=== PATIENT | male | born 1940 | race Caucasian/White ===

== ENCOUNTER → 2017-12-15 13:55 | Outpatient (CLI) | payer MEDICARE, SELFPAY ==
[2017-12-15 15:51] LABS: Prostate Specific Ag Screen 1.5 ng/mL (0.0-4.0)
== END ==
PROVIDERS: Visit Provider Urology
DX: Z12.5 Encounter for screening for malignant neoplasm of prostate (principal); N40.0 Benign prostatic hyperplasia without lower urinary tract symptoms
CPT/HCPCS: 36415; G0103

== ENCOUNTER 2021-01-27 08:23 | Inpatient (IN) | payer MEDICARE, SELFPAY ==
[2021-01-27] VITALS (26 sets, daily range): BP systolic 120–199; BP diastolic 37–109; PULSE 44–98; RESP 14–20; TEMP 36.4–37.2; O2SAT 92–100; BMI 30.4; BMI 30.6
--- NOTE | 2021-01-27 | IR_ITS ---
APPROVED REPORT Patient Location: [facility] Publications: DENNIS Russell RT (R) PROCEDURES 1. Left heart catheterization 2. Selective coronary arteriography 3. Left ventriculography 4. PTCA/stent of the first obtuse marginal branch of the circumflex 5. PTCA/stent of the circumflex INDICATION 1. Non-Q wave myocardial infarction, 2. Unstable angina SCAI INDICATION Patient is an 80-year-old white male who presented with progressive chest pain. Despite medical therapy still with 9 out of 10 chest pain. Leak of cardiac enzymes. No dynamic EKG changes consistent with acute myocardial infarction but given continued pain and cardiac leak of enzymes referred directly for left heart catheterization Informed consent was obtained prior to the procedure. COMPLICATIONS None Estimated Blood Loss: less than 10ml TECHNIQUE One percent lidocaine was used to anesthetize the right groin. The right femoral artery was accessed via the Seldinger technique. A 4-Tristanian sheath was placed in the right femoral artery. The JL-4 and JR-4 catheter was also used to perform left heart catheterization left ventriculogram and selective coronary angiogram. At the end of the procedure the patient was transferred to the post-op holding area in stable condition for arterial sheath removal. ANGIOGRAPHIC RESULTS The left main artery With 30% ostial stenosis. Good reflux of contrast and no damping of pressure The left anterior descending artery Smooth 30% mid and smooth 30% distal stenosis. Diagonal branch with 30% diffuse stenosis The circumflex artery 95% proximal occlusion. Large and codominant vessel. First obtuse marginal branch with 100% proximal occlusion with staining at that level The right coronary artery Moderate in size and codominant. Diffuse 20 to 30% stenosis throughout the mid vessel with normal flow into the posterior descending artery and posterior lateral branch The MITCHELL ventriculogram reveals Normal left ventricular systolic function at 55 to 60%. 1-2+ mitral insufficiency. No gradient on pullback of the catheter The left ventricular end-diastolic pressure 12 After diagnostic cath was performed the 4 Tristanian sheath was changed for a 6 Tristanian sheath. ACT was checked and additional thousand of heparin was given. Went in with a guide catheter to the left main coronary artery. Crossed into the circumflex with a Choice PT wire. Once I crossed, that artery opened. Stented with a 2.75 resolute Chong. Resulted in 0% residual stenosis. I then stented the proximal left circumflex with a 3.5 x 12 mm [place] drug-eluting stent. Resulted in 0% residual stenosis and brisk JACK-3 flow down both vessels when the procedure was complete Right common retrograde femoral arteriogram performed. Sheath placed in the right common femoral artery. Secondary to this an Angio-Seal device was deployed without difficulty IMPRESSION 1. Critical 100% occlusion of the large first obtuse marginal branch of the circumflex in its proximal portion 2. Critical stenosis noted in the ostial codominant left circumflex 3. Mild to moderate diffuse disease in the other coronary vessels 4. Preserved normal left ventricular systolic function 5. Mild to moderate mitral insufficiency 6. Normal left ventricular end-diastolic pressure 7. Successful angioplasty and stenting of the proximal first obtuse marginal branch of the circumflex with a resolute [place] drug-eluting stent resulting in 0% residual stenosis 8. Successful angioplasty and stenting of the proximal left circumflex with a resolute Chong drug-eluting stent resulting in 0% residual stenosis 9. Successful placement of an Angio-Seal device in the right common femoral artery
--- NOTE | 2021-01-27 08:23 | ECG_ITS ---
APPROVED REPORT Exam: Resting ECG HR:95 bpm ECG Measurements Heart Rate 95 AXES LA 170 P 27 QRSd 96 QRS -16 QT 354 T 21 QTc 444 Conclusion Sinus rhythm with frequent premature ventricular complexes Minimal voltage criteria for LVH, may be normal variant Nonspecific ST abnormality Abnormal ECG Electronically signed by : Carlos Roque, 01/30/2021 21:45:29
--- NOTE | 2021-01-27 08:26 | XR_ITS ---
PROCEDURE INFORMATION: Exam: XR Chest Exam date and time: 01/27/2021 8:26 AM Age: 80 years old Clinical indication: Pain; Left-sided; Additional info: Cp TECHNIQUE: Imaging protocol: XR of the chest. Views: 1 view. COMPARISON: CT ANGIO CHEST 01/27/2021 9:08 AM FINDINGS: Lungs: Unremarkable. No consolidation. Pleural spaces: Unremarkable. No pleural effusion. No pneumothorax. Heart/Mediastinum: Unremarkable. No cardiomegaly. Bones/joints: Unremarkable. IMPRESSION: No acute findings.
[2021-01-27 08:32] LABS: Basophils # 0.1 K/mm3 (0-0.2); Basophils % 0.6 % (0.1-2.0); Eosinophils # 0.2 K/mm3 (0.0-0.4); Eosinophils % 2.2 % (0.1-12.0); Hematocrit 48.6 % (42.0-52.0); Hemoglobin 16.3 g/dL (14.1-18.0); Lymphocytes # 2.7 K/mm3 (0.7-4.5); Mean Corpuscular HGB Conc 33.6 g/dL (31.8-35.4); Mean Corpuscular Hemoglobin 31.3 pg (27.0-31.2); Mean Corpuscular Volume 93.1 fl (80-94); Mean Platelet Volume 8.5 fl (7.4-10.4); Monocytes # 0.4 K/mm3 (0.1-1.0); Monocytes % 4.6 % (1.7-9.3); Neutrophils # 4.7 K/mm3 (1.8-7.8); Neutrophils % 58.6 % (37.0-80.0); Platelet Count 214 K/mm3 (142-424); Red Blood Count 5.22 M/mm3 (4.60-6.20); Red Cell Distribution Width 13.1 % (11.5-17.5); White Blood Count 8.1 K/mm3 (4.8-10.8)
[2021-01-27 08:37] LABS: Chloride 108 mmol/L (98-107); Potassium 4.1 mmoL/L (3.5-5.1); Sodium 142 mmol/L (136-145)
--- NOTE | 2021-01-27 08:38 | CT_ITS ---
PROCEDURE INFORMATION: Exam: CTA Chest With Contrast Exam date and time: 01/27/2021 8:38 AM Age: 80 years old Clinical indication: Pain; Left-sided; Patient HX: R/O aortic dissection TECHNIQUE: Imaging protocol: Computed tomographic angiography of the chest with contrast. 3D rendering (Not supervised by radiologist): MIP and/or 3D reconstructed images were created by the technologist. Radiation optimization: All CT scans at this facility use at least one of these dose optimization techniques: automated exposure control; mA and/or kV adjustment per patient size (includes targeted exams where dose is matched to clinical indication); or iterative reconstruction. Contrast material: ISOVUE; Contrast volume: 100 ml; Contrast route: INTRAVENOUS (IV); COMPARISON: ABDPELW/O CT ABD PELVIS W/O CONTRAST 11/13/2016 8:39 PM FINDINGS: Pulmonary arteries: Normal. No pulmonary emboli. Aorta: Negative for aortic dissection or aneurysm. Atherosclerotic plaque throughout the descending thoracic aorta. Lungs: Unremarkable. No consolidation. No masses. Pleural spaces: Unremarkable. No pneumothorax. No pleural effusion. Heart: Unremarkable. No cardiomegaly. No pericardial effusion. Lymph nodes: Unremarkable. No enlarged lymph nodes. Bones/joints: Unremarkable. No acute fracture. Soft tissues: Unremarkable. Other findings: Previous granulomatous exposure. IMPRESSION: Negative for aortic dissection or aneurysm.
--- NOTE | 2021-01-27 08:38 | CT_ITS ---
PROCEDURE INFORMATION: Exam: CTA Abdomen and Pelvis With Contrast Exam date and time: 01/27/2021 8:38 AM Age: 80 years old Clinical indication: Abdominal pain; Acute; Patient HX: Lt side c. P. X 2 days; Additional info: Aortic dissection TECHNIQUE: Imaging protocol: Computed tomographic angiography of the abdomen and pelvis with contrast material. 3D rendering (Not supervised by radiologist): MIP and/or 3D reconstructed images were created by the technologist. Radiation optimization: All CT scans at this facility use at least one of these dose optimization techniques: automated exposure control; mA and/or kV adjustment per patient size (includes targeted exams where dose is matched to clinical indication); or iterative reconstruction. Contrast material: ISOVUE; Contrast volume: 100 ml; Contrast route: INTRAVENOUS (IV); COMPARISON: ABDPELW/O CT ABD PELVIS W/O CONTRAST 11/13/2016 8:39 PM FINDINGS: Aorta: Negative for aortic dissection or aneurysm. Celiac trunk and mesenteric arteries: No occlusion or significant stenosis. Renal arteries: Renal arteries patent, numbering 2 on the left, 1 on the right. Right iliac arteries: No occlusion or significant stenosis. Left iliac arteries: No occlusion or significant stenosis. Liver: No mass. Gallbladder and bile ducts: Cholelithiasis. Pancreas: Unremarkable. No mass. No ductal dilation. Spleen: Unremarkable. No splenomegaly. Adrenal glands: Unremarkable. No mass. Kidneys and ureters: Unremarkable. No solid mass. No hydronephrosis. Stomach and bowel: Unremarkable. No obstruction. No mucosal thickening. Appendix: No evidence of appendicitis. Intraperitoneal space: Unremarkable. No free air. No significant fluid collection. Lymph nodes: Unremarkable. No enlarged lymph nodes. Urinary bladder: Unremarkable. No mass. Reproductive: Unremarkable as visualized. Bones/joints: Degenerative changes lumbar spine with multilevel disc narrowing. Soft tissues: Unremarkable. IMPRESSION: 1. Negative for aortic dissection or aneurysm. 2. Cholelithiasis.
[2021-01-27 08:40] LABS: Blood Urea Nitrogen 23 mg/dl (9-20); Creatinine Clearance Estimated 73 mL/min (50-200); Estimated Glomerular Filt Rate 72 ml/min (>60); GFR (African American) 87 ML/MIN (>60)
[2021-01-27 08:41] LABS: Anion Gap 14.1 mEq/L (5-15); Calcium 8.7 mg/dl (8.4-10.2); Carbon Dioxide 24 mmol/L (22.0-30.0); Glucose 150 mg/dl (74-100)
--- NOTE | 2021-01-27 08:51 | PC.NURSE ---
Radiology called to expedite CT scan. Pt currently on table, they will come get him next.
[2021-01-27 08:56] LABS: Troponin I 0.85 ng/ml (0.00-0.034)
--- NOTE | 2021-01-27 08:57 | PC.NURSE ---
Critical lab values called to Micah Cerda RN
--- NOTE | 2021-01-27 08:58 | PC.NURSE ---
aware of troponin
--- NOTE | 2021-01-27 09:01 | PC.NURSE ---
pt to rad
--- NOTE | 2021-01-27 09:07 | HMH.EDGENADL ---
ED Disposition Clinical Impression: NSTEMI (non-ST elevated myocardial infarction) Disposition: Admitted As Inpatient Condition on Discharge: Fair Referrals: Provider,Referral, [Referring] - - Critical Care Critical Care Time: Yes Attestation: On 01/27/21, the high probability of a clinically significant, sudden or life threatening deterioration of the following system(s) required my full and direct attention, intervention and personal management. The time I documented below is in addition to time spent performing reported procedures but includes the following listed in this critical care notation. I spent approximately 30 minutes caring for this patient with an NSTEMI. No procedures were performed, however patient had acute, ongoing chest pain throughout his duration the ED which required my immediate attention. I reassessed the patient frequently, spoke to family, reviewed laboratory results including critical troponin of 0.8, repeat EKG, spoke with both day porter, and initiated treatment prior to the patient being taken to the [facility]. Total Critical Care Time: 30 Vital system(s) involved:: Circulatory Failure My critical care processes included: Assessment & monitoring of V/S, Initial and Re-exams, Data Review/Interpretation, Coordinating Care, Medication Orders and management, Documentation Medical Decision Making - Medical Records Medical records reviewed: Yes: I reviewed the patient's medical records. - Clarence Inquiry Pt receiving controlled substance: Yes Clarence was queried for this patient: Yes Risks and benefits of using a controlled substance: were discussed with pt by me Vital Signs: 01/27/21 08:23 01/27/21 08:32 01/27/21 08:55 Temperature 97.5 F L Temperature Source Oral Pulse Rate 88 Pulse Rate [Right] 98 H Respiratory Rate 20 14 Blood Pressure 173/95 H 143/78 H Blood Pressure [Right Arm] 199/109 H Blood Pressure Mean [Right Arm] 139 02 Sat by Pulse Oximetry 97 92 L Oxygen Delivery Method Room Air Room Air 01/27/21 08:58 01/27/21 10:25 01/27/21 11:00 Temperature 98.2 F Temperature Source Oral Pulse Rate 65 77 Pulse Rate [Right] Respiratory Rate 14 16 Blood Pressure 137/79 132/67 136/58 L Blood Pressure [Right Arm] Blood Pressure Mean [Right Arm] 02 Sat by Pulse Oximetry 95 Oxygen Delivery Method Room Air Room Air - Lab Data Lab Results 01/27/21 08:07: WBC 8.1, RBC 5.22, Hgb 16.3, Hct 48.6, MCV 93.1, MCH 31.3 H, MCHC 33.6, RDW 13.1, Plt Count 214, MPV 8.5, Neut % (Auto) 58.6, Lymph % (Auto) 34.0, [place] % (Auto) 4.6, Eos % (Auto) 2.2, Baso % (Auto) 0.6, Neut # (Auto) 4.7, Lymph # (Auto) 2.7, [place] # (Auto) 0.4, Eos # (Auto) 0.2, Baso # (Auto) 0.1 01/27/21 08:07: Sodium 142, Potassium 4.1, Chloride 108 H, Carbon Dioxide 24, Anion Gap 14.1, BUN 23 H, Creatinine 1.00, Estimated Creat Clear 73, Estimated GFR 72, Est GFR ( Amer) 87, Glucose 150 H, Calcium 8.7, Troponin I 0.85 H Result diagrams: 01/27/21 08:07 01/27/21 08:07 Orders (Tests/Meds): ED MEDICATIONS Discontinued Medications Generic Name Dose Route Start Last Admin Trade Name Freq PRN Reason Stop Dose Admin Aspirin 324 mg 01/27/21 08:30 01/27/21 08:33 Aspirin 81mg Chewable Tablet PO 01/27/21 08:31 324 mg ONCE ONE Administration Diphenhydramine HCl 50 mg 01/27/21 10:45 01/27/21 11:15 Diphenhydramine 50mg/Ml Vial IV 01/27/21 10:46 50 mg ONCE ONE Administration Fentanyl Citrate 25 mcg 01/27/21 10:45 Fentanyl 100mcg/2ml Vial IV 01/28/21 10:45 Q3MINP PRN Moderate to Severe Pain Fentanyl Citrate 50 mcg 01/27/21 10:45 Fentanyl 100mcg/2ml Vial IV 01/28/21 10:45 Q3MINP PRN Moderate to Severe Pain Fentanyl Citrate 25 mcg 01/27/21 10:45 Fentanyl 250mcg/5ml Vial IV 01/28/21 10:45 Q3MINP PRN Moderate to Severe Pain Fentanyl Citrate 50 mcg 01/27/21 10:45 Fentanyl 250mcg/5ml Vial IV 01/28/21 10:45 Q3MINP
--- NOTE | 2021-01-27 09:24 | PC.NURSE ---
Pt returned from rad
--- NOTE | 2021-01-27 09:37 | ECG_ITS ---
APPROVED REPORT Exam: Resting ECG HR:73 bpm ECG Measurements Heart Rate 73 AXES OR 176 P 23 QRSd 96 QRS -18 QT 400 T 14 QTc 440 Conclusion Sinus rhythm with occasional premature ventricular complexes Otherwise normal ECG Electronically signed by : Carlos Roque, 01/30/2021 21:45:06
--- NOTE | 2021-01-27 10:03 | PC.NURSE ---
ROBYN YODER speaking with Dr jones
--- NOTE | 2021-01-27 10:06 | PC.NURSE ---
Plan to go to [facility] around 11:30, orders for brillinta & heparin.
--- NOTE | 2021-01-27 10:06 | PC.NURSE ---
House aware to call cath team for NSTEMI
--- NOTE | 2021-01-27 10:07 | PC.NURSE ---
general labor forklift operator team paged for NSTEMI/unstable angina for cath at 1100
--- NOTE | 2021-01-27 10:08 | PC.NURSE ---
Patti Heath called at this time.
--- NOTE | 2021-01-27 10:09 | PC.NURSE ---
Crystal Cummings called back
--- NOTE | 2021-01-27 10:11 | PC.NURSE ---
heparin dose verified with Dr. Xie 8000 units.
--- NOTE | 2021-01-27 10:12 | PC.NURSE ---
Benjamin gonzalez called back
--- NOTE | 2021-01-27 10:22 | PC.NURSE ---
Pt prepped for mobile lab technician, in hospital gown only. Bilateral groin shaved. Pt belongings in labeled bag at bedside.
--- NOTE | 2021-01-27 10:42 | PC.NURSE ---
Dr Jude davenport who is informatics physician liaison for [facility]
--- NOTE | 2021-01-27 10:59 | PC.NURSE ---
Pt to label rewinder at this time via transport conductor. Pt's belongings given to brother Javier at bedside.
[2021-01-27 12:00] LABS: CATHL Activated Clotting Time 239 SEC (74-125)
--- NOTE | 2021-01-27 12:15 | SUR.PHASEII ---
PT NEEDS ECHO IN THE MORNING PER DR. MADISON.
--- NOTE | 2021-01-27 13:16 | HMH.PHAVTE ---
[facility] Pharmacy VTE Monitoring - Patient Demographics Admission date: 01/27/21 Report Date: 01/27/21 Time: 13:16 Allergies/Adverse Reactions: Patient Allergies No Known Allergies Allergy (Verified 01/27/21 08:48) Height: 1.73 m Weight: 91.354 kg Patient Problems: Current Active Problems NSTEMI (non-ST elevated myocardial infarction) (Acute) - VTE Risk Labs: VTE Related Lab Results Hgb 16.3 g/dL (14.1-18.0) 01/27/21 08:07 Hct 48.6 % (42.0-52.0) 01/27/21 08:07 Plt Count 214 K/mm3 (142-424) 01/27/21 08:07 BUN 23 mg/dl (9-20) H 01/27/21 08:07 Creatinine 1.00 mg/dl (0.66-1.25) 01/27/21 08:07 Estimated Creat Clear 73 mL/min (50-200) 01/27/21 08:07 Clinical Trial Participant: No - Prophylaxis VTE Prophylaxis Ordered?: Yes Types of VTE Prophylaxis: TEDS Knee High
--- NOTE | 2021-01-27 14:58 | PC.NURSE ---
Addendum entered by Stefani Hall RN 01/27/21 15:08: per MD Roque, cancel all troponin orders for this pt Original Note: Spoke to [place] in the lab regarding pt's critical troponin. Verified name, and room number. Notified MD Roque, fashion director for MD Warner.
--- NOTE | 2021-01-27 17:07 | HMH.HP ---
*Admission Date: 01/27/21 *Chief complaint: Chest pain/angina *History of present illness: Patient is an 80-year-old male maddox presenting with 2 days of severe retrosternal chest pain. 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 States that he patient felt the pain in his back that then radiated anteriorly into his chest. Patient told nurse that the patient woke him up from sleep he states that nothing makes it better, nothing makes it worse. Patient states that he has had some nausea without vomiting. He denies any abdominal pain, fever, chills. Patient denies any known history of hypertension, cardiac history, prior PR. He states that he goes to the doctor annually and does not have any known medical problems. Patient further denies any changes in sensation or feeling to bilateral lower extremities or upper extremities. Above note Per emergency department physician. Patient presented to emergency department with 2 days of chest pressure. Unremitting to medicines in the ER. Taken to [facility] given elevated troponins and 100% circumflex lesion was noted, stented and patient did well. When I made rounds this afternoon patient was asymptomatic and felt 100% better. [facility] History I have reviewed the patient's past medical history: Yes Medical History: Reports:: Hyperlipidemia, Hypertension, Ulcer *Have you ever received a pneumonia vaccine?: Yes *Have you received a flu vaccine this season?: Yes Other Medical History: Reports: Anemia Laterality Cases: Bilateral: Other Other Surgeries: Yes: Colonoscopy Amputation: No Fractures: No - *Social History Smoking Status: Never smoker Alcohol Intake: current Alcohol Intake Frequency:: holidays/special occasions only Substance Use Type: denies use *Occupational Status:: retired *Travel in the last 8 weeks: None Family Hx:: Cancer, Diabetes, Heart Attack, Hypertension Review of Systems - Review of Systems Review of systems:: pertinent systems reviewed and negative unless documented below Meds Home Medications Medication Instructions Recorded Confirmed Type tamsulosin 0.4 mg capsule 0.8 mg PO HS 12/15/17 01/27/21 History Amlodipine Besylate/Benazepril 1 cap PO BID 01/27/21 01/27/21 History [Amlodipine-Benazepril 5-20 mg] Finasteride [Proscar 5mg Tablet] 5 mg PO DAILY 01/27/21 01/27/21 History Allergies Allergy/AdvReac Type Severity Reaction Status Date / Time No Known Allergies Allergy Verified 01/27/21 08:48 Exam Vital signs and Labs for Last 24 Hours: Temp Pulse Resp BP Pulse Ox 98.9 F 72 16 128/67 98 01/27/21 11:57 01/27/21 16:00 01/27/21 12:05 01/27/21 12:05 01/27/21 15:15 Laboratory Results - last 24 hr 01/27/21 08:07: WBC 8.1, RBC 5.22, Hgb 16.3, Hct 48.6, MCV 93.1, MCH 31.3 H, MCHC 33.6, RDW 13.1, Plt Count 214, MPV 8.5, Neut % (Auto) 58.6, Lymph % (Auto) 34.0, [place] % (Auto) 4.6, Eos % (Auto) 2.2, Baso % (Auto) 0.6, Neut # (Auto) 4.7, Lymph # (Auto) 2.7, [place] # (Auto) 0.4, Eos # (Auto) 0.2, Baso # (Auto) 0.1 01/27/21 08:07: Sodium 142, Potassium 4.1, Chloride 108 H, Carbon Dioxide 24, Anion Gap 14.1, BUN 23 H, Creatinine 1.00, Estimated Creat Clear 73, Estimated GFR 72, Est GFR ( Amer) 87, Glucose 150 H, Calcium 8.7, Troponin I 0.85 H 01/27/21 11:22: Activated Clotting Time 239 H* 01/27/21 14:24: Troponin I 47.80 H I & O for Last 24 hours: Intake & Output 01/25/21 01/26/21 01/27/21 01/28/21 11:59 11:59 11:59 11:59 Intake Total 120 / 120 120 / 120 Balance 120 / 120 120 / 120 Weight 200 lb 201 lb 6.4 oz - Constitutional no acute distress - *Routine HEENT Exam Head: Present: normocephalic Eye: Present: EOMI, PERRL ENT: Present: mucous membranes moist - *Routine Neck Exam Present: supple. Absent: lymphadenopathy - *Routine Respiratory Exam Present: CTA bilaterally - *Routine Cardiovascular Exam Present: RRR - *Routine Abdominal Exam Present: soft, normoactive bowel sounds
--- NOTE | 2021-01-27 17:59 | PC.NURSE ---
Since arrival to the floor, pt has done well. VSS. Pt has remained on RA, lungs CTA. Pt has c/o chest pressure x1 and requested PRN pain medication. PRN morphine administered w/ favorable results. Pt has been NSR w/ frequent PVC's this shift. No other acute changes or complaints at this time, will continue to monitor.
[2021-01-28] VITALS: BP 162/81; PULSE 60; PULSE 70; RESP 18; TEMP 36.6; O2SAT 96
--- NOTE | 2021-01-28 03:23 | PC.NURSE ---
Pt is A/Ox4. Pt has been very pleasant all shift and has slept very well. no acute changes. Lungs are CTA. Active bowel sounds x4. Pt is on room air with stats >90's. Pt has been NS on tele all night. Pt's incision site is C/D/I in the right femoral area. Pt has denied pain all shift. VSS, call light within reach, will continue to monitor.
[2021-01-28 03:24] VITALS: BP 150/76; PULSE 71; RESP 18; TEMP 36.7; O2SAT 97
[2021-01-28 04:00] VITALS: PULSE 70
[2021-01-28 05:00] VITALS: BMI 30.2
[2021-01-28 06:24] LABS: Basophils # 0.1 K/mm3 (0-0.2); Basophils % 1.1 % (0.1-2.0); Eosinophils # 0.2 K/mm3 (0.0-0.4); Hematocrit 44.2 % (42.0-52.0); Lymphocytes # 1.5 K/mm3 (0.7-4.5); Lymphocytes % 17.5 % (10-50); Mean Corpuscular HGB Conc 33.9 g/dL (31.8-35.4); Mean Corpuscular Hemoglobin 31.4 pg (27.0-31.2); Mean Corpuscular Volume 92.8 fl (80-94); Mean Platelet Volume 8.4 fl (7.4-10.4); Monocytes # 0.6 K/mm3 (0.1-1.0); Monocytes % 6.6 % (1.7-9.3); Neutrophils # 6.3 K/mm3 (1.8-7.8); Neutrophils % 72.9 % (37.0-80.0); Platelet Count 191 K/mm3 (142-424); Red Blood Count 4.76 M/mm3 (4.60-6.20); Red Cell Distribution Width 13.4 % (11.5-17.5); White Blood Count 8.6 K/mm3 (4.8-10.8)
[2021-01-28 06:31] LABS: Prothrombin Time 11.4 seconds (10.1-12.5)
[2021-01-28 06:35] LABS: Anion Gap 10.9 mEq/L (5-15); Blood Urea Nitrogen 12 mg/dl (9-20); Calcium 8.2 mg/dl (8.4-10.2); Carbon Dioxide 23 mmol/L (22.0-30.0); Chloride 109 mmol/L (98-107); Chol/HDL Ratio 4.9 (1-3.5); Cholesterol 186 mg/dl (140-200); Creatinine Clearance Estimated 73 mL/min (50-200); Estimated Glomerular Filt Rate 93 ml/min (>60); GFR (African American) 112 ML/MIN (>60); Glucose 112 mg/dl (74-100); HDL Cholesterol 38 mg/dl (40-60); Potassium 3.9 mmoL/L (3.5-5.1); Sodium 139 mmol/L (136-145); Triglycerides 91 mg/dl (30-150); VLDL Cholesterol 18 mg/dL (0-40)
[2021-01-28 06:38] LABS: INR 0.96 (0.9-1.1)
[2021-01-28 06:48] LABS: Direct LDL Cholesterol 109.61 mg/dL (100-129)
--- NOTE | 2021-01-28 07:00 | CA_ITS ---
APPROVED REPORT EXAM: Comprehensive 2D, Doppler, and color-flow Echocardiogram Software Team Leader: Lilian Quiñonez CRT Ht: 5 ft 8 in Wt: 200lbs BSA: 2.04 BP: 136/58 mmHg Indications: nstemi, cath 01/27/21, cp 2D Dimensions LVOT 2.01 cm (M/F) 1.5-2.5 LA Volume 50.70 mL LA Volume Index 24.90 mL/m2 (M/F) 16-34 M-Mode Dimensions RVDd 2.99 cm (0.9-2.6) LA Diam 3.16 cm (1.9-4.0) LVDd 3.47 cm (3.5-5.7) Ao Diam 3.92 cm (2.0-3.7) LVDs 2.29 cm (3.5-5.7) IVSd 1.66 cm (0.6-1.1) PWd 1.00 cm (0.6-1.1) EF (Teich) 64.10% FS 34.00% EDV (Teich) 49.80 mL TAPSE 2.56 (<1.7) ESV (Teich) 17.90 mL LV Diastology E Decel Time 150.00 (160-240 msec) E/A Ratio 0.35 Aortic Valve AI PHT 412.00 ms AO Peak GR. 3.80 mmHg Mitral Valve MV E Max Josue. 36.00 (40-130 cm/s) MV A Velocity 103.00 (40-130 cm/s) E/A Ratio 0.35 MV Decel. Time 150.00 (160-240 ms) MV PHT 44.00 ms Pulmonary Valve PV Peak Velocity 150.00 (50-150 cm/s) Tricuspid Valve TR P. Velocity 218.00 cm/s RAP Estimate 10.00 mmHg RVSP 28.90 mmHg Left Ventricle Left atrium is mildly enlarged, left ventricle is normal size, visually estimated ejection fraction 50%, there is moderate hypokinesis involving the posterolateral wall, Doppler evidence of impaired LV relaxation seen, there is no tissue Doppler performed. Right Ventricle Right atrium and right ventricle are normal size and contractility. Aortic Valve Aortic valve is minimally thickened and fibrosed, there is no aortic stenosis, there is trace aortic insufficiency. Mitral Valve Mitral valve is grossly normal, there is mild mitral regurgitation. Tricuspid Valve Tricuspid valve grossly normal, there is mild tricuspid regurgitation, tricuspid regurgitation jet velocity is inadequate for calculation of the right ventricular systolic pressure. Pulmonic Valve Pulmonic valve is poorly visualized. Great Vessels Aortic root is normal size. Pericardium No significant pericardial effusion noted. Conclusion 1. Mildly enlarged left atrium, normal left ventricular size, mild concentric left ventricular hypertrophy, visually estimated ejection fraction 50% with segmental wall motion abnormality described above, Doppler evidence of impaired LV relaxation seen, there is no tissue Doppler performed. 2. Mild mitral and tricuspid regurgitation, there is trace aortic insufficiency. 3. No significant pericardial effusion noted. Electronically signed by : Alan Vargas, 01/28/2021 22:33:10
--- NOTE | 2021-01-28 07:13 | HMH.ACPN2 ---
Internal Medicine - PN: Subj *Date: 01/28/21 *Time: 07:13 Interval history: Patient remains chest pain-free feels good . Echocardiogram is in process Exam Vital signs and Labs for Last 24 Hours: Temp Pulse Resp BP Pulse Ox 98.1 F 70 18 150/76 H 97 01/28/21 03:24 01/28/21 04:00 01/28/21 03:24 01/28/21 03:24 01/28/21 03:24 Laboratory Results - last 24 hr 01/27/21 08:07: WBC 8.1, RBC 5.22, Hgb 16.3, Hct 48.6, MCV 93.1, MCH 31.3 H, MCHC 33.6, RDW 13.1, Plt Count 214, MPV 8.5, Neut % (Auto) 58.6, Lymph % (Auto) 34.0, Randall % (Auto) 4.6, Eos % (Auto) 2.2, Baso % (Auto) 0.6, Neut # (Auto) 4.7, Lymph # (Auto) 2.7, Randall # (Auto) 0.4, Eos # (Auto) 0.2, Baso # (Auto) 0.1 01/27/21 08:07: Sodium 142, Potassium 4.1, Chloride 108 H, Carbon Dioxide 24, Anion Gap 14.1, BUN 23 H, Creatinine 1.00, Estimated Creat Clear 73, Estimated GFR 72, Est GFR ( Amer) 87, Glucose 150 H, Calcium 8.7, Troponin I 0.85 H 01/27/21 11:22: Activated Clotting Time 239 H* 01/27/21 14:24: Troponin I 47.80 H 01/28/21 05:46: WBC 8.6, RBC 4.76, Hgb 15.0, Hct 44.2, MCV 92.8, MCH 31.4 H, MCHC 33.9, RDW 13.4, Plt Count 191, MPV 8.4, Neut % (Auto) 72.9, Lymph % (Auto) 17.5, Randall % (Auto) 6.6, Eos % (Auto) 2.0, Baso % (Auto) 1.1, Neut # (Auto) 6.3, Lymph # (Auto) 1.5, Randall # (Auto) 0.6, Eos # (Auto) 0.2, Baso # (Auto) 0.1 01/28/21 05:46: PT 11.4, INR 0.96 01/28/21 05:46: Sodium 139, Potassium 3.9, Chloride 109 H, Carbon Dioxide 23, Anion Gap 10.9, BUN 12 D, Creatinine 0.80, Estimated Creat Clear 73, Estimated GFR 93, Est GFR ( Amer) 112 D, Glucose 112 H D, Calcium 8.2 L, Triglycerides 91, Cholesterol 186, LDL Cholesterol Direct 109.61, VLDL Cholesterol 18, HDL Cholesterol 38 L, Cholesterol/HDL Ratio 4.9 H I & O for Last 24 hours: Intake & Output 01/25/21 01/26/21 01/27/21 01/28/21 11:59 11:59 11:59 11:59 Intake Total 120 / 120 600 / 600 Balance 120 / 120 600 / 600 Weight 200 lb 199 lb 2 oz - Constitutional no acute distress - *Routine Respiratory Exam Present: CTA bilaterally - *Routine Cardiovascular Exam Present: RRR - *Routine Extremities Exam Absent: cyanosis, clubbing, edema Assessment and Plan (1) NSTEMI (non-ST elevated myocardial infarction) Status: Acute Category: Medical Code(s): I21.4 - Non-ST elevation (NSTEMI) myocardial infarction - Assessment and plan all Dx Assessment and Plan for all problems:: 1. Start beta-prabhjot therapy today with bisoprolol 2-1/2 mg this patient's heart rate has ranged from 46-71. 2. Complete echocardiogram 3. Plan for discharge this evening with outpatient follow-up with me in 48 hours and cardiology in 1 week
[2021-01-28 07:38] VITALS: BP 147/81; PULSE 71; RESP 18; TEMP 36.9; O2SAT 96
[2021-01-28 08:00] VITALS: PULSE 70
--- NOTE | 2021-01-28 08:42 | HMH.CNCARD ---
History of Present Illness Consult date: 01/28/21 Requesting physician: Carlos Warner Consult reason: chest pain Chief complaint: NSTEMI Additional Medical History:: 1. Hypertension 2. Non-ST elevation [place], 01/27/2021 A. C, 01/27/2021, MARISOL to circumflex artery IMPRESSION 1. Critical 100% occlusion of the large first obtuse marginal branch of the circumflex in its proximal portion 2. Critical stenosis noted in the ostial codominant left circumflex 3. Mild to moderate diffuse disease in the other coronary vessels 4. Preserved normal left ventricular systolic function 5. Mild to moderate mitral insufficiency 6. Normal left ventricular end-diastolic pressure 7. Successful angioplasty and stenting of the proximal first obtuse marginal branch of the circumflex with a resolute Simms drug-eluting stent resulting in 0% residual stenosis 8. Successful angioplasty and stenting of the proximal left circumflex with a resolute Simms drug-eluting stent resulting in 0% residual stenosis 9. Successful placement of an Angio-Seal device in the right common femoral artery PLAN 1. Patient underwent stenting to the circumflex. Now has full revascularization. Echocardiogram will be obtained in the morning to evaluate mitral insufficiency. Left ventricular function appears to be normal. Brilinta 180 mg x 1 was given in the emergency room and he will continue on 90 mg twice daily. Aggressive risk factor modification and titration of medications. Follow-up in cardiology clinic 1 to 2 weeks after discharge Electronically signed by : Bry Xie, 01/27/2021 11:50:36 History of present illness: Patient is an 80-year-old male maddox presenting with 2 days of severe retrosternal chest pain. 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 States that he patient felt the pain in his back that then radiated anteriorly into his chest. Patient told nurse that the patient woke him up from sleep he states that nothing makes it better, nothing makes it worse. Patient states that he has had some nausea without vomiting. He denies any abdominal pain, fever, chills. Patient denies any known history of hypertension, cardiac history, prior [place]. He states that he goes to the doctor annually and does not have any known medical problems. Patient further denies any changes in sensation or feeling to bilateral lower extremities or upper extremities. Above note Per emergency department physician. Patient presented to emergency department with 2 days of chest pressure. Unremitting to medicines in the ER. Taken to [facility] given elevated troponins and 100% circumflex lesion was noted, stented and patient did well. When I made rounds this afternoon patient was asymptomatic and felt 100% better. The above per Dr. Warner. Patient confirms the account as noted above. [facility] with stent placed yesterday. Pt states he feels great. No complaints and wants to go home. Telemetry is sinus without arrhythmias. [facility] History Medical History: Reports:: Hyperlipidemia, Hypertension, Ulcer *Have you ever received a pneumonia vaccine?: Yes *Have you received a flu vaccine this season?: Yes Other Medical History: Reports: Anemia Laterality Cases: Bilateral: Other Other Surgeries: Yes: Colonoscopy Amputation: No Fractures: No - *Social History Smoking Status: Never smoker Alcohol Intake: current Alcohol Intake Frequency:: holidays/special occasions only Substance Use Type: denies use *Occupational Status:: retired *Travel in the last 8 weeks: None Family Hx:: Cancer, Diabetes, Heart Attack, Hypertension Meds Home Medications Medication Instructions Recorded Confirmed Type tamsulosin 0.4 mg capsule 0.8 mg PO HS 12/15/17 01/27/21 History Amlodipine Besylate/Benazepril 1 cap PO BID 01/27/21 01/27/21 History [Amlodipine-Benazepril 5-20 mg] Finasteride [Proscar 5mg Tablet] 5 mg PO DAILY 01/27/21 01/27/21 History Aspirin [Aspirin 81mg chewable 81
[2021-01-28 09:33] LABS: Coronavirus 19, PCR Not Detected (NotDetected); Influenza A, PCR Not Detected (NotDetected); Influenza B, PCR Not Detected (NotDetected)
[2021-01-28 12:00] VITALS: PULSE 50
--- NOTE | 2021-01-28 15:21 | HMH.PHACLD ---
Jose Raul Banuelos has received discharge medication counseling on the following medications: PATIENT IS STARTING ASPIRIN 81 MG DAILY, ATORVASTATIN 80 MG HS, BENAZEPRIL 40 MG DAILY, BISOPROLOL 2.5 MG DAILY AND BRILINTA 90 MG BID.
--- NOTE | 2021-03-07 14:50 | HMH.DCSUM ---
General - General Admission date:: 01/27/21 Discharge date: 01/28/21 HPI HPI: Patient is an 80-year-old male maddox presenting with 2 days of severe retrosternal chest pain. 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 States that he patient felt the pain in his back that then radiated anteriorly into his chest. Patient told nurse that the patient woke him up from sleep he states that nothing makes it better, nothing makes it worse. Patient states that he has had some nausea without vomiting. He denies any abdominal pain, fever, chills. Patient denies any known history of hypertension, cardiac history, prior [place]. He states that he goes to the doctor annually and does not have any known medical problems. Patient further denies any changes in sensation or feeling to bilateral lower extremities or upper extremities. Above note Per emergency department physician. Patient presented to emergency department with 2 days of chest pressure. Unremitting to medicines in the ER. Taken to [facility] given elevated troponins and 100% circumflex lesion was noted, stented and patient did well. When I made rounds this afternoon patient was asymptomatic and felt 100% better. Hospital Course Hospital Course: Patient was observed for 24 hour after stenting to circumflex and to allow for Echocardiogram. Cath report is as follows: IMPRESSION 1. Critical 100% occlusion of the large first obtuse marginal branch of the circumflex in its proximal portion 2. Critical stenosis noted in the ostial codominant left circumflex 3. Mild to moderate diffuse disease in the other coronary vessels 4. Preserved normal left ventricular systolic function 5. Mild to moderate mitral insufficiency 6. Normal left ventricular end-diastolic pressure 7. Successful angioplasty and stenting of the proximal first obtuse marginal branch of the circumflex with a resolute Chong drug-eluting stent resulting in 0% residual stenosis 8. Successful angioplasty and stenting of the proximal left circumflex with a resolute Chong drug-eluting stent resulting in 0% residual stenosis 9. Successful placement of an Angio-Seal device in the right common femoral artery PLAN 1. Patient underwent stenting to the circumflex. Now has full revascularization. Echocardiogram will be obtained in the morning to evaluate mitral insufficiency. Left ventricular function appears to be normal. Brilinta 180 mg x 1 was given in the emergency room and he will continue on 90 mg twice daily. Aggressive risk factor modification and titration of medications. Follow-up in cardiology clinic 1 to 2 weeks after discharge Echo Results: Conclusion 1. Mildly enlarged left atrium, normal left ventricular size, mild concentric left ventricular hypertrophy, visually estimated ejection fraction 50% with segmental wall motion abnormality described above, Doppler evidence of impaired LV relaxation seen, there is no tissue Doppler performed. 2. Mild mitral and tricuspid regurgitation, there is trace aortic insufficiency. 3. No significant pericardial effusion noted. Objective Vital signs: Temp Pulse Resp BP Pulse Ox 98.4 F 50 L 18 147/81 H 96 01/28/21 07:38 01/28/21 12:00 01/28/21 07:38 01/28/21 07:38 01/28/21 07:38 no acute distress - *Routine Respiratory Exam Present: CTA bilaterally - *Routine Cardiovascular Exam Present: RRR DS: Diagnosis - Discharge Diagnosis (1) NSTEMI (non-ST elevated myocardial infarction) Status: Acute (2) Hyperlipidemia Status: Acute Discharge Plan - Patient Discharge Instructions ACTIVITY: Continue current activity DIET: continue same diet Patient Instructions: DI for Heart Attack, DI for Cardiac Catheterization, DI for Surgical Site Infection - Follow up Plan Follow up with: Josh Che MD [Staff Physician] - 02/05/21 10:00 am Carlos Warner MD [Primary Care Provider] -
== END 2021-01-28 15:25 | disposition home or self-care (01) | DRG 247 ==
LOC: ER 09:29 → 2ND 14:13
PROVIDERS: Internal Medicine Cardiovascular Disease; Admitting Provider Internal Medicine Adolescent Medicine; Emergency Provider Emergency Medicine; PCP Family Medicine; Visit Provider Family Medicine
PROC: 027035Z Dilation of Coronary Artery, One Artery with Two Drug-eluting Intraluminal Devices, Percutaneous Approach (ICD-10-PCS; principal; 2021-01-27 11:30)
DX: I21.4 Non-ST elevation (NSTEMI) myocardial infarction (principal); I25.110 Atherosclerotic heart disease of native coronary artery with unstable angina pectoris; I10 Essential (primary) hypertension; E78.5 Hyperlipidemia, unspecified; I25.82 Chronic total occlusion of coronary artery; I25.5 Ischemic cardiomyopathy; I34.0 Nonrheumatic mitral (valve) insufficiency
CPT/HCPCS: 36415; 71045; 71275; 74174; 80048; 80061; 84484; 85025; 85347; 85610; 92929; 92943; 93005; 93306; 93458; 96374; 96375; 99152; 99283; 99284; C1725; C1760; C1769; C1876; C1894; C9601; C9607; J1644; Q9967; U0003

== ENCOUNTER → 2021-02-05 14:44 | Outpatient (CLI) | payer MEDICARE, SELFPAY ==
[2021-02-05 15:23] LABS: Hematocrit 45.8 % (42.0-52.0); Hemoglobin 15.8 g/dL (14.1-18.0)
[2021-02-05 15:44] LABS: Blood Urea Nitrogen 32 mg/dl (9-20); Estimated Glomerular Filt Rate 53 ml/min (>60); GFR (African American) 64 ML/MIN (>60)
== END ==
PROVIDERS: Visit Provider Internal Medicine
DX: R06.00 Dyspnea, unspecified (principal); I25.10 Atherosclerotic heart disease of native coronary artery without angina pectoris; I21.4 Non-ST elevation (NSTEMI) myocardial infarction; E78.5 Hyperlipidemia, unspecified; R53.83 Other fatigue; R94.31 Abnormal electrocardiogram [ECG] [EKG]
CPT/HCPCS: 36415; 82565; 84520; 85014; 85018

== ENCOUNTER 2021-02-14 08:43 | Outpatient (RCR) | payer MEDICARE, SELFPAY | END 2021-05-29 10:35 | disposition home or self-care (01) | LOC: PT 08:43 | PROVIDERS: Visit Provider Internal Medicine | DX: Z95.5 Presence of coronary angioplasty implant and graft (principal); I25.10 Atherosclerotic heart disease of native coronary artery without angina pectoris | CPT/HCPCS: 93798 ==

== ENCOUNTER → 2021-04-29 13:49 | Outpatient (CLI) | payer MEDICARE, SELFPAY ==
[2021-04-29 14:42] LABS: Anion Gap 8.2 mEq/L (5-15); Blood Urea Nitrogen 17 mg/dl (9-20); Calcium 8.5 mg/dl (8.4-10.2); Carbon Dioxide 25 mmol/L (22.0-30.0); Chloride 109 mmol/L (98-107); Estimated Glomerular Filt Rate 93 ml/min (>60); GFR (African American) 112 ML/MIN (>60); Glucose 110 mg/dl (74-100); Potassium 4.2 mmoL/L (3.5-5.1); Sodium 138 mmol/L (136-145)
== END ==
PROVIDERS: Visit Provider Urology
DX: E78.2 Mixed hyperlipidemia (principal); I25.10 Atherosclerotic heart disease of native coronary artery without angina pectoris; I49.8 Other specified cardiac arrhythmias; R06.00 Dyspnea, unspecified; R94.31 Abnormal electrocardiogram [ECG] [EKG]
CPT/HCPCS: 36415; 80048

== ENCOUNTER → 2021-08-20 14:36 | Outpatient (CLI) | payer MEDICARE, SELFPAY ==
--- NOTE | 2021-08-20 14:40 | CA_ITS ---
FINAL REPORT TECHNIQUE: Color Doppler, duplex Doppler and compression sonography of the right lower extremity venous system was performed. CLINICAL HISTORY: RTCALF PAIN X SEVERAL DAYS FINDINGS: There is no evidence of deep venous thrombosis from the level of the groin to the calf. The veins are patent and compressible. There is a 3.5 cm heterogeneous solid-appearing mass in the popliteal fossa at the may represent adenopathy or other mass. IMPRESSION: No evidence of deep venous thrombosis right lower extremity. Heterogeneous solid-appearing mass in the popliteal fossa may represent adenopathy or other mass. MRI may be helpful. Reviewed, Interpreted and Dictated by Jose Raul Gómze III, MD Transcribed by Osmar Da Silva Authenticated by Jose Raul Gómez III, MD on 08/20/2021 04:14:02 PM [facility]
== END ==
PROVIDERS: PCP Family Medicine; Visit Provider Family Medicine
DX: M79.661 Pain in right lower leg (principal); Z82.49 Family history of ischemic heart disease and other diseases of the circulatory system
CPT/HCPCS: 93971

== ENCOUNTER → 2022-09-23 07:45 | Outpatient (CLI) | payer MEDICARE, SELFPAY ==
[2022-09-23 08:17] LABS: Basophils # 0.1 K/mm3 (0-0.2); Basophils % 1.5 % (0.1-2.0); Eosinophils # 0.3 K/mm3 (0.0-0.4); Hematocrit 46.3 % (42.0-52.0); Lymphocytes % 29.8 % (10-50); Mean Corpuscular HGB Conc 32.3 g/dL (31.8-35.4); Mean Corpuscular Hemoglobin 31.1 pg (27.0-31.2); Mean Corpuscular Volume 96.2 fl (80-94); Mean Platelet Volume 8.8 fl (7.4-10.4); Monocytes # 0.4 K/mm3 (0.1-1.0); Monocytes % 6.1 % (1.7-9.3); Neutrophils % 58.7 % (37.0-80.0); Platelet Count 211 K/mm3 (142-424); Red Blood Count 4.82 M/mm3 (4.60-6.20); Red Cell Distribution Width 13.6 % (11.5-17.5); White Blood Count 6.8 K/mm3 (4.8-10.8)
[2022-09-23 09:23] LABS: Alanine Aminotransferase 22 U/L (12-78); Albumin Level 3.5 g/dl (3.5-5.0); Albumin/Globulin Ratio 1.3 (1.1-1.8); Alkaline Phosphatase 112 U/L (38-126); Anion Gap 9.6 mEq/L (5-15); Aspartate Amino Transferase 29 U/L (17-59); Bilirubin,Total 1.2 mg/dl (0.2-1.3); Blood Urea Nitrogen 19 mg/dl (9-20); Calcium 8.2 mg/dl (8.4-10.2); Carbon Dioxide 26 mmol/L (22.0-30.0); Chloride 107 mmol/L (98-107); Chol/HDL Ratio 2.2 (1-3.5); Cholesterol 94 mg/dl (140-200); Estimated Glomerular Filt Rate 80 ml/min (>60); GFR (African American) 97 ML/MIN (>60); Globulin 2.6 g/dL (1.3-3.2); Glucose 105 mg/dl (74-100); HDL Cholesterol 42 mg/dl (40-60); Potassium 4.6 mmoL/L (3.5-5.1); Sodium 138 mmol/L (136-145); Total Protein,Serum 6.1 g/dl (6.3-8.2); Triglycerides 52 mg/dl (30-150); VLDL Cholesterol 10 mg/dL (0-40)
[2022-09-23 09:34] LABS: Direct LDL Cholesterol 46.33 mg/dL (100-129)
== END ==
PROVIDERS: PCP Internal Medicine Adolescent Medicine; Visit Provider Nurse Practitioner Family
DX: Z00.00 Encounter for general adult medical examination without abnormal findings (principal); E78.2 Mixed hyperlipidemia; I10 Essential (primary) hypertension
CPT/HCPCS: 36415; 80053; 80061; 85025

== ENCOUNTER 2023-12-23 16:30 | Emergency (ER) | payer MEDICARE, SELFPAY ==
[2023-12-23 16:31] VITALS: BP 150/67; PULSE 69; RESP 20; TEMP 36.6; O2SAT 96; BMI 31.3
--- NOTE | 2023-12-23 16:37 | PC.NURSE ---
DR PEREZ AT BEDSIDE
--- NOTE | 2023-12-23 16:38 | CT_ITS ---
PROCEDURE INFORMATION: Exam: CT Abdomen And Pelvis With Contrast Exam date and time: 12/23/2023 5:22 PM Age: 83 years old Clinical indication: Other: Difficulty initiating urine stream w/ pain TECHNIQUE: Imaging protocol: Computed tomography of the abdomen and pelvis with contrast. Radiation optimization: All CT scans at this facility use at least one of these dose optimization techniques: automated exposure control; mA and/or kV adjustment per patient size (includes targeted exams where dose is matched to clinical indication); or iterative reconstruction. Contrast material: ISOVUE; Contrast volume: 75 ml; Contrast route: IV; COMPARISON: CT ANGIO ABDOMEN PELVIS 01/27/2021 9:08 AM FINDINGS: Liver: Normal. No mass. Gallbladder and bile ducts: Small calcified gallstones noted in the gallbladder. No significant gallbladder wall thickening. Pancreas: Normal. No ductal dilation. Spleen: Normal. No splenomegaly. Adrenal glands: Normal. No mass. Kidneys and ureters: Stable small bilateral parapelvic cysts in the kidneys. No solid renal mass or hydronephrosis. Stomach and bowel: Unremarkable. No obstruction. No mucosal thickening. Appendix: The appendix is visualized and appears normal. Intraperitoneal space: Unremarkable. No free air. No significant fluid collection. Vasculature: Moderate atherosclerotic calcification of the aorta. No evidence of aneurysm or dissection. Lymph nodes: Unremarkable. No enlarged lymph nodes. Urinary bladder: Bladder wall appears thickened with surrounding fatty stranding suggesting cystitis. Reproductive: Prostate gland is moderately enlarged, measuring 5.7 cm in diameter. Bones/joints: Mild dextroscoliosis of the lumbar spine with multilevel degenerative disc changes and facet arthropathy throughout the lower spine. Mild retrolisthesis of L3. No vertebral body compression or acute fracture. Soft tissues: Unremarkable. IMPRESSION: Wall thickening of the bladder compatible with cystitis. No hydronephrosis. Other incidental chronic findings as noted.
[2023-12-23 16:40] VITALS: BP 150/63; PULSE 69; O2SAT 91
--- NOTE | 2023-12-23 16:41 | ED_ITS ---
Discharge Plan Disposition Patient Disposition: Home, Self-Care Chief Complaint: Urogenital-Male Prescriptions Prescriptions: No Action aspirin 81 mg tablet,chewable 81 mg PO DAILY Qty: 90 3RF atorvastatin 80 mg tablet 80 mg PO HS Qty: 90 3RF benazepril 40 mg tablet 20 mg PO DAILY Qty: 45 3RF bisoprolol fumarate 5 mg tablet 5 mg PO DAILY Qty: 90 3RF finasteride 5 mg tablet 5 mg PO DAILY Qty: 90 3RF tamsulosin 0.4 mg capsule 0.8 mg PO HS Qty: 180 3RF nitroglycerin 0.4 mg tablet, sublingual 0.4 mg sublingual Q5M PRN (Reason: chest pain) Qty: 30 3RF Rx Instructions: do not exceed 3 doses per episode hydrochlorothiazide 25 mg tablet 25 mg PO DAILY Qty: 90 3RF Referrals Follow up/Referrals: Carlos Roque MD [Primary Care Provider] - See instructions Troy Denton MD [Staff Physician] - See instructions Activity Restrictions/Add. Instructions Additional Instructions/Restrictions: At this time is felt you are safe to be discharged home. New or worsening symptoms please do not state to return the emergency department. Please call and schedule an appointment with urology as soon as you are able Dr. Denton at [phone].. Clinical Impressions Clinical Impression: Benign prostatic hyperplasia, Difficult or painful urination Instructions Patient Instructions: Benign Prostatic Hyperplasia Discharge ED Provider: Samy Melendez General Adult HPI General Chief complaint: Urogenital-Male Stated complaint: Difficulty urinating,lower back pain Time Seen by Provider: 12/23/23 16:33 History of Present Illness HPI narrative: Patient is a 83-year-old male with past medical history of hypertension, prostate problems . Who presents emergency department for evaluation of painful voiding. Over the last 24 hours patient has had painful voiding. He has had straining to initiate stream for a long time . Pain intermittently radiates to his low back in a bandlike distribution across his low back. No difficulty walking, no other acute complaints at this time. Per chart review patient was seen by urology in 2019 and diagnosed with BPH and was to follow-up within 1 year which seems to have not happened per chart review. Related Data Previous Rx's Medication Instructions Recorded aspirin 81 mg chewable tablet 81 mg PO DAILY #90 tabs 01/28/23 atorvastatin 80 mg tablet 80 mg PO HS #90 tabs 01/28/23 benazepril 40 mg tablet 20 mg (1/2 x 40 mg) PO DAILY #45 01/28/23 tabs bisoprolol fumarate 5 mg tablet 5 mg PO DAILY #90 tabs 01/28/23 finasteride 5 mg tablet 5 mg PO DAILY benign prostate 01/28/23 hyperplasia #90 tabs nitroglycerin 0.4 mg sublingual 0.4 mg sublingual Q5M PRN chest 01/28/23 tablet pain #30 tabs tamsulosin 0.4 mg capsule 0.8 mg (2 x 0.4 mg) PO HS benign 01/28/23 prostate hyperplasia #180 caps hydrochlorothiazide 25 mg tablet 25 mg PO DAILY #90 tabs 07/30/23 Allergies Allergy/AdvReac Type Severity Reaction Status Date / Time No Known Allergies Allergy Verified 07/30/23 12:54 [facility] Disclaimer: The information contained in this section may have been updated after the patient was seen, as this information can be updated by other users. Medical History (Updated 12/23/23 @ 18:20 by Samy Melendez MD) Skin lesion of chest wall Abnormal electrocardiography Dyspnea Fatigue CAD (coronary artery disease) Social History Smoking Status: Never smoker alcohol intake: current alcohol intake frequency: holidays/special occasions only substance use type: denies use current occupational status: retired Travel in the last 8 weeks: Inside the [place] ROS Obtained: Yes Systems reviewed as appropriate & no additional complaints except as documented Physical Exam General General appearance: alert and in no apparent distress Head Head exam: atraumatic and normocephalic Eye Eye exam: Present PERRL ENT ENT exam: Present mucous membranes moist Neck Neck exam: Present normal inspection Chest Chest inspection: Present normal inspection and symmetric chest wall rise Respiratory Respiratory exam: Present normal lung sounds bilaterally; Absent respiratory distress Cardiovascular Cardiovascular exam: Present regular rate and normal rhythm Abdominal Exam Abdominal exam: Present soft; Absent tenderness Extremities Exam Extremities exam: Present normal inspection Back Exam Back exam: Absent tenderness Neurological Exam Neurological exam: Present alert; Absent motor sensory deficit Psychiatric Psychiatric exam: Present normal affect Skin Skin exam: Present warm and dry Medical Decision Making Clarence Inquiry Pt receiving controlled substance: No Vital Signs: 12/23/23 16:31 12/23/23 16:40 12/23/23 17:02 Temperature 97.8 F Temperature Source Oral Pulse Rate 69 Pulse Rate [Right Radial] 69 Respiratory Rate 20 Blood Pressure 150/63 H 108/50 L Blood Pressure [Right Arm] 150/67 H Blood Pressure Mean 69 Blood Pressure Mean [Right Arm] 94 02 Sat by Pulse Oximetry 96 91 L Oxygen Delivery Method Room Air 12/23/23 17:08 12/23/23 17:25 Temperature Temperature Source Pulse Rate 60 69 Pulse Rate [Right Radial] Respiratory Rate Blood Pressure 127/59 L Blood Pressure [Right Arm] Blood Pressure Mean Blood Pressure Mean [Right Arm] 02 Sat by Pulse Oximetry 92 L 93 L Oxygen Delivery Method Lab Data Lab Results 12/23/23 16:30: Urine Color Yellow, Urine Appearance Clear, Urine pH 6.0, Ur Specific [employer] >= 1.030, Urine Protein 1+, Urine Glucose (UA) Negative, Urine Ketones Negative, Urine Blood Trace-i, Urine Nitrate Negative, Urine Bilirubin Negative, Urine Urobilinogen 1.0, Ur Leukocyte Esterase Trace, Urine RBC 3-5, Urine WBC Occasional, Ur Squamous Epith Cells None, Urine Bacteria None 12/23/23 16:50: WBC 10.2, RBC 4.65, Hgb 14.9, Hct 45.9, MCV 98.6 H, MCH 32.0 H, MCHC 32.5, RDW 13.8, Plt Count 196, MPV 8.8, Neut % (Auto) 69.4, Lymph % (Auto) 21.0, [place] % (Auto) 6.4, Eos % (Auto) 2.3, Baso % (Auto) 0.9, Neut # (Auto) 7.1, Lymph # (Auto) 2.1, [place] # (Auto) 0.7, Eos # (Auto) 0.2, Baso # (Auto) 0.1, Sodium 140, Potassium 4.4, Chloride 108 H, Carbon Dioxide 27, Anion Gap 9.4, BUN 24 H, Creatinine 1.00, Estimated Creat Clear 69, Estimated GFR 71, Est GFR ( Amer) 86, Glucose 148 H, Calcium 8.9, Total Bilirubin 1.0, AST 35, ALT 30, Alkaline Phosphatase 105, Total Protein 7.3, Albumin 3.8, Globulin 3.5 H, Albumin/Globulin Ratio 1.1 12/23/23 16:50 12/23/23 16:50 Orders (Tests/Meds): ED MEDICATIONS Discontinued Medications Generic Name Dose Route Start Last Admin Trade Name Maureen PRN Reason Stop Dose Admin Acetaminophen 1,000 mg 12/23/23 16:38 12/23/23 16:59 Acetaminophen 1,000mg/100ml Vial IV 12/23/23 16:39 1,000 mg ONCE ONE Administration Iopamidol 75 ml 12/23/23 17:21 12/23/23 17:22 Iopamidol-370 (76%);100ml Bottle IV 12/23/23 17:22 75 ml ONCE ONE Administration Sodium Chloride 10 ml 12/23/23 17:21 12/23/23 17:22 Sodium Chloride 0.9% 10ml Syr (Rad Only) IV 12/23/23 17:22 10 ml ONCE ONE Administration ORDERS Category Date Time Status CT abdomen pelvis w con Stat Cat Scan 12/23/23 16:38 Completed CBC w/Auto Diff [Complete Blood Count Auto Diff] Stat Lab 12/23/23 16:50 Completed CMP [Comprehensive Metabolic Panel] Stat Lab 12/23/23 16:50 Completed UA [Urinalysis and Microscopic] Stat Lab 12/23/23 16:30 Completed Medical Decision Narrative: In summary patient is a 83-year-old male past medical history described above who presents emergency department for evaluation of difficulty voiding and pain. Patient is hemodynamically stable nontoxic-appearing upon arrival, afebrile. Differential diagnosis includes worsening BPH, other causes of bladder outlet obstruction such as malignancy, among others. Workup will be conducted with urinalysis, hematologic labs, CT abdomen pelvis IV contrast, postvoid residual. Initial inventions include IV Tylenol. Workup reviewed by me, hematologic labs are nonactionable, urinalysis has microscopic hematuria, not consistent with infection. CT abdomen pelvis shows wall thickening of the bladder. Postvoid residual is minimal. Patient has mildly enlarged prostate. Given this all emergent causes have been ruled out at this point and patient is appropriate for outpatient management and will be referred to urology on outpatient basis. Critical Care Critical Care Time Critical Care Time: No
[2023-12-23 16:43] LABS: Microscopic, Urine URINE MICROSCOPIC (MICROSCOPIC)
[2023-12-23 16:47] LABS: Appearance,Urine CLEAR (Clear); Bilirubin,Urine Negative (Negative); Blood, Urine TRACE-I (Negative); Color,Urine YELLOW (Yellow); Glucose,Urine (UA) Negative (Negative); Ketones,Urine Negative (Negative); Leukocyte Esterase,Urine TRACE (Negative); Nitrate,Urine Negative (Negative); Protein,Urine 1+ (Negative); Specific Gravity, Urine >= 1.030 (1.005-1.030)
--- NOTE | 2023-12-23 16:52 | PC.NURSE ---
post void residual scan was 0
[2023-12-23] MEDS: ACETAMINOPHEN 1,000MG/100ML VIAL 1000 MG IV (16:59)
[2023-12-23 17:02] VITALS: BP 108/50
[2023-12-23 17:08] VITALS: PULSE 60; O2SAT 92
[2023-12-23 17:12] LABS: Chloride 108 mmol/L (98-107); Potassium 4.4 mmoL/L (3.5-5.1); Sodium 140 mmol/L (136-145)
[2023-12-23 17:13] LABS: Basophils # 0.1 K/mm3 (0-0.2); Basophils % 0.9 % (0.1-2.0); Eosinophils # 0.2 K/mm3 (0.0-0.4); Eosinophils % 2.3 % (0.1-12.0); Hematocrit 45.9 % (42.0-52.0); Hemoglobin 14.9 g/dL (14.1-18.0); Lymphocytes # 2.1 K/mm3 (0.7-4.5); Mean Corpuscular HGB Conc 32.5 g/dL (31.8-35.4); Mean Corpuscular Volume 98.6 fl (80-94); Mean Platelet Volume 8.8 fl (7.4-10.4); Monocytes # 0.7 K/mm3 (0.1-1.0); Monocytes % 6.4 % (1.7-9.3); Neutrophils # 7.1 K/mm3 (1.8-7.8); Neutrophils % 69.4 % (37.0-80.0); Platelet Count 196 K/mm3 (142-424); Red Blood Count 4.65 M/mm3 (4.60-6.20); Red Cell Distribution Width 13.8 % (11.5-17.5); White Blood Count 10.2 K/mm3 (4.8-10.8)
[2023-12-23 17:15] LABS: Alanine Aminotransferase 30 U/L (12-78); Albumin Level 3.8 g/dl (3.5-5.0); Albumin/Globulin Ratio 1.1 (1.1-1.8); Alkaline Phosphatase 105 U/L (38-126); Anion Gap 9.4 mEq/L (5-15); Aspartate Amino Transferase 35 U/L (17-59); Blood Urea Nitrogen 24 mg/dl (9-20); Calcium 8.9 mg/dl (8.4-10.2); Carbon Dioxide 27 mmol/L (22.0-30.0); Creatinine Clearance Estimated 69 mL/min (50-200); Estimated Glomerular Filt Rate 71 ml/min (>60); GFR (African American) 86 ML/MIN (>60); Globulin 3.5 g/dL (1.3-3.2); Glucose 148 mg/dl (74-100); Total Protein,Serum 7.3 g/dl (6.3-8.2)
[2023-12-23 17:16] LABS: WBC,Urine Occasional #/hpf (0-3)
[2023-12-23] MEDS: IOPAMIDOL-370 (76%);100ML BOTTLE 75 ML IV (17:22)
[2023-12-23] MEDS: SODIUM CHLORIDE 0.9% 10ML SYR (RAD ONLY) 10 ML IV (17:22)
[2023-12-23 17:25] VITALS: BP 127/59; PULSE 69; O2SAT 93
[2023-12-23 18:33] VITALS: BP 121/63; PULSE 54; RESP 13; TEMP 36.7
== END 2023-12-23 18:34 | disposition home or self-care (01) ==
PROVIDERS: Emergency Provider Emergency Medicine; PCP Internal Medicine Adolescent Medicine
DX: N40.0 Benign prostatic hyperplasia without lower urinary tract symptoms (principal); R30.9 Painful micturition, unspecified; M54.59 Other low back pain; I10 Essential (primary) hypertension
CPT/HCPCS: 74177; 80053; 81001; 85025; 96374; 99284; J0131; Q9967

== ENCOUNTER 2024-01-19 15:31 | Outpatient (POV) | payer MEDICARE, SELFPAY | END 2024-01-19 23:59 | disposition home or self-care (01) | LOC: SC 15:31 | PROVIDERS: PCP Internal Medicine Adolescent Medicine; Visit Provider Dermatology | DX: Z00.00 Encounter for general adult medical examination without abnormal findings (principal) ==

== ENCOUNTER 2024-03-07 10:18 | Emergency (ER) | payer MEDICARE, SELFPAY ==
[2024-03-07 10:50] VITALS: BP 136/82; PULSE 51; RESP 20; TEMP 36.7; O2SAT 99; BMI 25.1
[2024-03-07 11:00] VITALS: BP 136/82; PULSE 51; RESP 20; TEMP 36.7; O2SAT 99
== END 2024-03-07 11:05 | disposition home or self-care (01) ==
PROVIDERS: Emergency Provider Nurse Practitioner Family; PCP Internal Medicine Adolescent Medicine
DX: Z48.02 Encounter for removal of sutures (principal)

== ENCOUNTER 2024-03-11 01:55 | Emergency (ER) | payer MEDICARE, SELFPAY ==
[2024-03-11 01:55] VITALS: BP 156/69; PULSE 85; RESP 19; TEMP 36.8; O2SAT 98; BMI 34.3
--- NOTE | 2024-03-11 01:56 | ECG_ITS ---
APPROVED REPORT Exam: Resting ECG HR:57 bpm ECG Measurements Heart Rate 57 AXES WI 219 P 60 QRSd 103 QRS -21 QT 403 T 29 QTc 398 Conclusion SINUS BRADYCARDIA WITH FIRST DEGREE AV BLOCK BORDERLINE LEFT AXIS DEVIATION [QRS AXIS < -20] MODERATE VOLTAGE CRITERIA FOR LVH, CONSIDER NORMAL VARIANT [MEETS CRITERIA IN ONE OF: R(aVL), S(V1), R(V5), R(V5/V6)+S(V1)] ABNORMAL ECG UNCONFIRMED REPORT Electronically signed by : CARLOS LANDIN, 03/11/2024 06:49:59
--- NOTE | 2024-03-11 02:00 | XR_ITS ---
PROCEDURE INFORMATION: Exam: XR Chest Exam date and time: 03/11/2024 2:04 AM Age: 83 years old Clinical indication: Shortness of breath; Additional info: Transient SOB TECHNIQUE: Imaging protocol: Radiologic exam of the chest. Views: 1 view. Total images: 1 COMPARISON: CR XR CHEST PORTABLE 01/27/2021 9:18 AM FINDINGS: Lungs: Unremarkable. No consolidation. No pulmonary vascular congestion or edema. Pleural spaces: Unremarkable. No pleural effusion. No pneumothorax. Heart/Mediastinum: Unremarkable. No cardiomegaly. No mediastinal widening or hilar enlargement. Vasculature: Mildly atherosclerotic thoracic aorta. Bones/joints: Mild degenerative changes thoracic spine and bilateral shoulders/AC joints. Other findings: Lordotic positioning. IMPRESSION: No radiographically acute cardiopulmonary process.
--- NOTE | 2024-03-11 02:00 | CT_ITS ---
PROCEDURE INFORMATION: Exam: CT Abdomen And Pelvis With Contrast Exam date and time: 03/11/2024 2:30 AM Age: 83 years old Clinical indication: Abdominal pain; Additional info: Epigastric abd pain TECHNIQUE: Imaging protocol: Computed tomography of the abdomen and pelvis with contrast. Total images: 330 Radiation optimization: All CT scans at this facility use at least one of these dose optimization techniques: automated exposure control; mA and/or kV adjustment per patient size (includes targeted exams where dose is matched to clinical indication); or iterative reconstruction. Contrast material: ISOVUE; Contrast volume: 75 ml; Contrast route: IV; COMPARISON: CT ABDOMEN PELVIS W CON 12/23/2023 5:22 PM FINDINGS: Lungs: Minor dependent bibasilar atelectasis. Heart: Trace pericardial fluid. Coronary arteries: Coronary artery calcifications. Liver: Normal. No mass. Gallbladder and biliary ducts: Cholelithiasis without secondary signs of acute cholecystitis. No biliary ductal dilatation. Pancreas: Mild fatty interdigitation of the pancreas. No discrete mass or acute pancreatitis. Spleen: Normal. No splenomegaly. Adrenal glands: Normal. No mass. Kidneys and ureters: Bilateral peripelvic renal cysts. Chronic bilateral perinephric fat stranding. No nephrolithiasis or hydronephrosis. No discrete renal mass. Stomach and bowel: Unremarkable stomach and duodenum. No ileus or bowel obstruction. Unremarkable small bowel. Unremarkable terminal ileum. Mild colonic diverticulosis without diverticulitis. Unremarkable rectum. Appendix: Normal appendix. Intraperitoneal space: Unremarkable. No free air. No significant fluid collection. Vasculature: Moderate atherosclerotic vascular disease. Nonaneurysmal abdominal aorta. Pelvic phleboliths. Lymph nodes: Unremarkable. No enlarged lymph nodes. Urinary bladder: Unremarkable as visualized. Reproductive: Prostatomegaly at 6 cm. Bones/joints: Moderate degenerative changes thoracolumbar spine. Mild lumbar dextrocurvature. Mild degenerative changes bilateral hips and SI joints. No acute osseous abnormality. Stable minor retrolisthesis L3-L4. Soft tissues: Diastasis of the rectus fascia. IMPRESSION: 1. No acute intra-abdominal or pelvic process. 2. Cholelithiasis without secondary signs of acute cholecystitis 3. Colonic diverticulosis without diverticulitis 4. Moderate prostatomegaly. 5. Additional stable chronic and incidental findings
--- NOTE | 2024-03-11 02:00 | [facility].EDGENADL ---
Discharge Plan Disposition Patient Disposition: Home, Self-Care Prescriptions Prescriptions: No Action tamsulosin 0.4 mg capsule 0.8 mg PO HS Qty: 180 3RF finasteride 5 mg tablet 5 mg PO DAILY Qty: 90 3RF atorvastatin 80 mg tablet 80 mg PO HS Qty: 90 3RF benazepril 40 mg tablet 20 mg PO DAILY Qty: 45 3RF nitroglycerin 0.4 mg tablet, sublingual 0.4 mg sublingual Q5M PRN (Reason: chest pain) Qty: 30 3RF Rx Instructions: do not exceed 3 doses per episode hydrochlorothiazide 25 mg tablet 25 mg PO DAILY Qty: 90 3RF bisoprolol fumarate 5 mg tablet See Rx Instructions .ROUTE .COMPLEX Qty: 90 3RF Dose Instruction: TAKE 1 TABLET EVERY DAY Rx Instructions: TAKE 1 TABLET EVERY DAY aspirin 81 mg tablet,chewable See Rx Instructions .ROUTE .COMPLEX Qty: 90 3RF Dose Instruction: CHEW AND SWALLOW 1 TABLET EVERY DAY Rx Instructions: CHEW AND SWALLOW 1 TABLET EVERY DAY Referrals Follow up/Referrals: Jose Raul Younger MD [Staff Physician] - See instructions Activity Restrictions/Add. Instructions Additional Instructions/Restrictions: Please follow-up with your primary care provider. Please return to the emergency department if you develop any new or worsening symptoms or become concerned for your health. If you develop signs of infection or persistent pain, recommend returning to the ER. Consider following up with the general surgeon if you have recurrent episodes as the pain could be related to your gallbladder Clinical Impressions Clinical Impression: Acute epigastric pain, Cholelithiasis Instructions Patient Instructions: DI for Acute Abdominal Pain Print Language Print Language: Surinamese Discharge ED Provider: Mansoor Johnson Adult HPI General Chief complaint: Abdominal Pain Stated complaint: abdominal pain Time Seen by Provider: 03/11/24 02:00 Mode of Arrival: Family Vehicle Source of Information: Patient Limitations: No Limitations Description of Symptoms (Recalled from ER Triage Doc. by RN): 83 yo male presents with cc of abd pain that caused increased SOA. apparently this resolved upon ems sitting him upright. denies angina, however he states that it somewhat felt like this when he had a heart attack last. vss. afebrile no sick contacts. History of Present Illness HPI narrative: 83-year-old male with history of of hypertension, coronary artery disease, obesity presents for sudden onset abdominal pain. He reports it began in his epigastric area. Did not radiate. He reports that it took his breath away. He denies any chest pain or tightness. He reports that the pain felt similar to his last heart attack but was localized much lower than previously. Denies any recent fever or illness. Denies any history of abdominal surgery. Patient reports that his symptoms were initially fairly severe but then eased off quite a bit. By the time I evaluated the patient after his arrival with EMS he reports that his symptoms have essentially completely abated. Related Data Previous Rx's ?Medication ?Instructions ?Recorded atorvastatin 80 mg tablet 80 mg PO HS #90 tabs 01/28/23 benazepril 40 mg tablet 20 mg (1/2 x 40 mg) PO DAILY #45 01/28/23 tabs nitroglycerin 0.4 mg sublingual 0.4 mg sublingual Q5M PRN chest 01/28/23 tablet pain #30 tabs hydrochlorothiazide 25 mg tablet 25 mg PO DAILY #90 tabs 07/30/23 finasteride 5 mg tablet 5 mg PO DAILY benign prostate 03/07/24 hyperplasia #90 tabs tamsulosin 0.4 mg capsule 0.8 mg (2 x 0.4 mg) PO HS benign 03/07/24 prostate hyperplasia #180 caps aspirin 81 mg chewable tablet See Rx Instructions .Route 03/08/24 .COMPLEX #90 tabs bisoprolol fumarate 5 mg tablet See Rx Instructions .Route 03/08/24 .COMPLEX #90 tabs Allergies Allergy/AdvReac Type Severity Reaction Status Date / Time No Known Allergies Allergy Verified 03/07/24 09:55 [facility] Disclaimer: The information contained in this section may have been updated after the patient was seen, as this information can be updated by other users. Medical History Skin lesion of chest wall Abnormal electrocardiography Dyspnea Fatigue CAD (coronary artery disease) Surgical History History of colonoscopy Social History Smoking Status: Unknown if ever smoked alcohol intake: current alcohol intake frequency: holidays/special occasions only substance use type: denies use current occupational status: retired Travel in the last 8 weeks: Inside the [facility] ROS Obtained: Yes All systems reviewed & no additional complaints except as documented Physical Exam General General appearance: alert, in no apparent distress and obese Head Head exam: atraumatic and normocephalic Eye Eye exam: Present normal appearance, PERRL and EOMI ENT ENT exam: Present normal oropharynx and normal external ear exam Neck Neck exam: Present normal inspection and full ROM Chest Chest inspection: Present normal inspection and symmetric chest wall rise; Absent tenderness Respiratory Respiratory exam: Present normal lung sounds bilaterally; Absent respiratory distress Cardiovascular Cardiovascular exam: Present regular rate and normal rhythm Abdominal Exam Abdominal exam: Present soft, distention and tenderness (Minimal epigastric); Absent guarding Extremities Exam Extremities exam: Present normal inspection; Absent edema or joint swelling Back Exam Back exam: Present normal inspection; Absent tenderness Neurological Exam Neurological exam: Present alert and oriented X3; Absent motor sensory deficit Psychiatric Psychiatric exam: Present normal affect and normal mood Skin Skin exam: Present warm, dry and normal color Lymphatic Lymphatic Findings: no adenopathy Medical Decision Making Medical Records Medical records reviewed: Yes I reviewed the patient's medical records. Clarence Inquiry Pt receiving controlled substance: No Clarence was queried for this patient: No Vital Signs: 03/11/24 01:55 03/11/24 05:34 Temperature 98.2 F 97.8 F Temperature Source Oral Oral Pulse Rate 50 L Pulse Rate [Right Brachial] 85 Respiratory Rate 19 16 Blood Pressure 130/59 L Blood Pressure [Right Arm] 156/69 H Blood Pressure Mean [Right Arm] 98 Blood Pressure Source Automatic Cuff Blood Pressure Source [Right Arm] Automatic Cuff Blood Pressure Position Supine Blood Pressure Position [Right Arm] Sitting 02 Sat by Pulse Oximetry 98 Oxygen Delivery Method Room Air Room Air Lab Data Lab results reviewed: Yes I reviewed the patient's lab results. Lab Results 03/11/24 01:50: WBC 12.8 H, RBC 4.55 L, Hgb 14.5, Hct 45.5, MCV 100.0 H, MCH 31.8 H, MCHC 31.9, RDW 13.4, Plt Count 227, MPV 9.0, Neut % (Auto) 79.7, Lymph % (Auto) 14.5, [place] % (Auto) 3.7, Eos % (Auto) 1.3, Baso % (Auto) 0.6, Neut # (Auto) 10.2 H, Lymph # (Auto) 1.9, [place] # (Auto) 0.5, Eos # (Auto) 0.2, Baso # (Auto) 0.1, Sodium 138, Potassium 4.2, Chloride 106, Carbon Dioxide 29, Anion Gap 7.2, BUN 23 H, Creatinine 0.90, Estimated Creat Clear 69, Estimated GFR 80, Est GFR ( Amer) 97, Glucose 172 H, Calcium 8.4, Total Bilirubin 1.3, AST 158 H, ALT 96 H, Alkaline Phosphatase 153 H, Troponin I < 0.01, Total Protein 7.1, Albumin 3.8, Globulin 3.3 H, Albumin/Globulin Ratio 1.2, Lipase 279 03/11/24 04:50: Troponin I < 0.01 03/11/24 01:50 03/11/24 01:50 Orders (Tests/Meds): ED MEDICATIONS Discontinued Medications Generic Name Dose Route Start Last Admin Trade Name Freq PRN Reason Stop Dose Admin Acetaminophen 1,000 mg 03/11/24 02:00 03/11/24 02:53 Acetaminophen 500mg Tab PO 03/11/24 02:01 1,000 mg ONCE ONE Administration Aspirin 325 mg 03/11/24 02:00 03/11/24 02:53 Aspirin 325mg Tablet PO 03/11/24 02:01 325 mg ONCE ONE Administration Iopamidol 75 ml 03/11/24 02:37 03/11/24 02:38 Iopamidol-370 (76%);100ml Bottle IV 03/11/24 02:38 75 ml ONCE ONE Administration Sodium Chloride 10 ml 03/11/24 02:37 03/11/24 02:38 Sodium Chloride 0.9% 10ml Syr (Rad Only) IV 04/10/24 02:36 10 ml NEEDED PRN Administration Maintain IV Site ORDERS Category Date Time Status CT abdomen pelvis w con Stat Cat Scan 03/11/24 02:00 Completed CXR --portable [XR chest portable] Stat Exams 03/11/24 02:00 Completed CBC w/Auto Diff [Complete Blood Count Auto Diff] Stat Lab 03/11/24 01:50 Completed CMP [Comprehensive Metabolic Panel] Stat Lab 03/11/24 01:50 Completed Lipase Stat Lab 03/11/24 01:50 Completed Troponin I Q3H Lab 03/11/24 01:50 Completed Troponin I Q3H Lab 03/11/24 04:50 Completed HEART Score History (anamnesis): Slightly suspicious ECG: Normal Age: >65 years Risk factors: Atherosclerosis history Troponin: </= normal limit HEART Score: 4 Medical Decision Narrative: 83-year-old male with history of coronary artery disease, hypertension hyperlipidemia presents for acute onset but transient epigastric pain that took his breath away. History was obtained via interactive discussion with patient, chart review, discussion with EMS. On arrival, patient is [afebrile, hemodynamically stable, satting appropriately, alert, oriented x4, GCS 15], moving all extremities spontaneously. Full physical exam performed and significant for minimal epigastric tenderness, otherwise benign exam. Differential includes but is not limited to ACS, gastritis, cholecystitis, symptomatic cholelithiasis, gastroenteritis, pancreatitis, bowel obstruction, gas pain, Patient was given Tylenol, aspirin for symptomatic management and correction of underlying abnormalities. Workup initiated including CBC CMP troponin EKG chest x-ray CT abdomen pelvis IV contrast lipase. On re-evaluation, patient [remains afebrile, HD stable.] Continues to be symptom-free at this time. Laboratory workup independently interpreted by me and significant for negative initial troponin, mild leukocytosis white count of 12.8, mildly elevated liver enzymes with AST 158, ALT 96, alk phos 153. Bilirubin 1.3, at the upper limit of normal. Repeat troponin negative. Imaging independently interpreted by me and significant for cholelithiasis without evidence of cholecystitis. No evidence of pancreatitis, no significant bowel abnormalities.. See radiology read for full review of final results. EKG independently interpreted by me and significant for sinus bradycardia with first-degree AV block, no concerning ST or T wave changes.. Given patient history, exam and workup, patient's presentation most likely represents symptomatic cholelithiasis versus transient stomach pain. Seems unlikely to be cardiac pain given normal cardiac workup. The patient's mildly elevated liver enzymes and mild leukocytosis are concerning, that the patient has had no significant right upper quadrant or epigastric tenderness on my evaluation at all and negative imaging for cholecystitis. I had extensive discussion with patient and family regarding presentation. Recommend he follow-up with PCP for further assessment. Information for general surgery referral sent for evaluation of possible symptomatic cholelithiasis. Strict return precautions. Procedures Risk/Benefits of Procedure(s) Were Explained: Yes Critical Care Critical Care Time Critical Care Time: No
[2024-03-11 02:13] LABS: Basophils # 0.1 K/mm3 (0-0.2); Basophils % 0.6 % (0.1-2.0); Eosinophils # 0.2 K/mm3 (0.0-0.4); Eosinophils % 1.3 % (0.1-12.0); Hematocrit 45.5 % (42.0-52.0); Hemoglobin 14.5 g/dL (14.1-18.0); Lymphocytes # 1.9 K/mm3 (0.7-4.5); Lymphocytes % 14.5 % (10-50); Mean Corpuscular HGB Conc 31.9 g/dL (31.8-35.4); Mean Corpuscular Hemoglobin 31.8 pg (27.0-31.2); Monocytes # 0.5 K/mm3 (0.1-1.0); Monocytes % 3.7 % (1.7-9.3); Neutrophils # 10.2 K/mm3 (1.8-7.8); Neutrophils % 79.7 % (37.0-80.0); Platelet Count 227 K/mm3 (142-424); Red Blood Count 4.55 M/mm3 (4.60-6.20); Red Cell Distribution Width 13.4 % (11.5-17.5); White Blood Count 12.8 K/mm3 (4.8-10.8)
[2024-03-11 02:15] LABS: Albumin Level 3.8 g/dl (3.5-5.0); Chloride 106 mmol/L (98-107); Potassium 4.2 mmoL/L (3.5-5.1); Sodium 138 mmol/L (136-145)
[2024-03-11 02:18] LABS: Alanine Aminotransferase 96 U/L (12-78); Albumin/Globulin Ratio 1.2 (1.1-1.8); Alkaline Phosphatase 153 U/L (38-126); Anion Gap 7.2 mEq/L (5-15); Aspartate Amino Transferase 158 U/L (17-59); Bilirubin,Total 1.3 mg/dl (0.2-1.3); Blood Urea Nitrogen 23 mg/dl (9-20); Carbon Dioxide 29 mmol/L (22.0-30.0); Creatinine Clearance Estimated 69 mL/min (50-200); Estimated Glomerular Filt Rate 80 ml/min (>60); GFR (African American) 97 ML/MIN (>60); Globulin 3.3 g/dL (1.3-3.2); Lipase 279 U/L (23-300); Total Protein,Serum 7.1 g/dl (6.3-8.2)
[2024-03-11 02:19] LABS: Calcium 8.4 mg/dl (8.4-10.2); Glucose 172 mg/dl (74-100)
[2024-03-11 02:31] LABS: Troponin I < 0.01 ng/ml (0.00-0.034)
[2024-03-11] MEDS: IOPAMIDOL-370 (76%);100ML BOTTLE 75 ML IV (02:38)
[2024-03-11] MEDS: SODIUM CHLORIDE 0.9% 10ML SYR (RAD ONLY) 10 ML IV (02:38)
[2024-03-11] MEDS: ACETAMINOPHEN 500MG TAB 1000 MG PO (02:53)
[2024-03-11] MEDS: ASPIRIN 325MG TABLET 325 MG PO (02:53)
[2024-03-11 05:22] LABS: Troponin I < 0.01 ng/ml (0.00-0.034)
[2024-03-11 05:34] VITALS: BP 130/59; PULSE 50; RESP 16; TEMP 36.6; O2SAT 95
== END 2024-03-11 05:34 | disposition home or self-care (01) ==
PROVIDERS: Emergency Provider Emergency Medicine
DX: R10.13 Epigastric pain (principal); K80.20 Calculus of gallbladder without cholecystitis without obstruction; I11.9 Hypertensive heart disease without heart failure; I25.10 Atherosclerotic heart disease of native coronary artery without angina pectoris; R00.1 Bradycardia, unspecified; I44.0 Atrioventricular block, first degree
CPT/HCPCS: 71045; 74177; 80053; 83690; 84484; 85025; 93005; 99285; Q9967

== ENCOUNTER 2024-03-31 10:10 | Outpatient (CLI) | payer MEDICARE, SELFPAY ==
--- NOTE | 2024-03-31 | CA_ITS ---
APPROVED REPORT Exam: Pharmacologic Technologist: Frieda Zambrano, Ht: 5 ft 7 in Wt: 193 lbs BSA: 1.99 m2 HR: 50 bpm BP: 144/84 mmHg Rhythm: Sinus suha, 1st degree AVB, PVCs Medical History Medications: Aspirin,,,,, Atorvastatin,,,,, HCTZ,,,,, Benazepril,,,,, TAMSULOSIN,,,,, BisOPROLOL Fumarate,,,,, Finasteride,,,,, Nitroglycerin,,,,, Cardiac Risk Factors: HTN, Hyperlipidemia Stress Test Details Test: LEXISCAN HR Resting HR: 53 bpm Max Heart Rate (APMHR): 135 bpm Max HR Achieved: 75 bpm Target HR (85% APMHR): 115 bpm % of APMHR: 56 Recovery HR: 68 bpm BP Resting BP: 144/84 mmHg Max BP: 144/84 mmHg Recovery BP: 134.0/63.0 mmHg ECG Resting ECG: sinus bradycardi, 1st degree AVB, PVCs Stress ECG: no significant ST changes Arrhythmia: PVCs Clinical Exercise duration: 04:00 min Highest Stage Achieved: Exercise capacity: 1.0 METs Stress ECG Conclusion During lexiscan pt experinced SOA, no CP noted. Ectopy: Occasional PVC. No significant ST changes. Conclusion: Unremarkable lexiscan stress. Myoview images reported separately. Test Summary REST . . . . . . . Sitting REST 04:15 . . 53 . 144/ 84 . . Stage 1 01:00 . . 64 . . . . Stage 2 01:00 . . 73 . 137/ 64 . . Stage 3 01:00 . . 73 . 144/ 67 . . Stage 4 01:00 . . 68 . 141/ 63 . Stop exercise at 04:00 RECOVERY 01:00 . . 68 . 134/ 63 . . RECOVERY 02:00 . . 69 . 134/ 63 . . RECOVERY 02:32 . . 70 . 132/ 62 . . Electronically signed by : Anna Nunes MD 04/04/2024 13:06:49
--- NOTE | 2024-03-31 10:16 | CA_ITS ---
APPROVED REPORT EXAM: Comprehensive 2D, Doppler, and color-flow Echocardiogram Poultry Veterinarian: Andie Umana, URIAH, RVS Ht: 5 ft 7 in Wt: 193lbs BSA: 1.99 BP: 134/62 mmHg Indications: CADm Abn EKG, Pre-op, HTN, BHAGAT, FAtigue, CP 2D Dimensions IVSd 1.11 cm LVEF (Visual) 60.30 % PWd 1.07 cm LA Volume 57.50 mL LVDd 4.64 cm LA Volume Index 28.20 mL/m2 (M/F) 16-34 LVDs 3.15 cm Left Atrium 3.77 cm M-Mode Dimensions RVDd 3.37 cm (0.9-2.6) LA Diam 4.07 cm (1.9-4.0) LVDd 4.52 cm (3.5-5.7) LVDs 2.60 cm (3.5-5.7) IVSd 1.19 cm (0.6-1.1) PWd 1.19 cm (0.6-1.1) EF (Teich) 73.70% EPSs 1.92 cm FS 42.50% EDV (Teich) 93.40 mL TAPSE 2.34 (<1.7) ESV (Teich) 24.60 mL LV Diastology E Decel Time 433 (160-240 msec) E/A Ratio 0.51 MED A' 11.00 cm/s LAT A' 11.70 cm/s Aortic Valve DASIA Index 1.17 cm2/m2 AoV Peak Josue. 103.0 (50-130 cm/s) AO Peak GR. 4.20 mmHg AO Mean GR. 2.10 (<5 mmHg) AO VTI 21.6 (18-25 cm) DASIA (VTI) 2.39 (2.5-4.5 cm2) Mitral Valve MV A Velocity 75.0 (40-130 cm/s) E/A Ratio 0.51 MV Mean Gr. 0.90 (<2mmHg) Tricuspid Valve TR P. Velocity 197.00 cm/s RAP Estimate 10.00 mmHg RVSP 25.50 mmHg Left Ventricle The left ventricle is normal size. The left ventricular systolic function is normal. The left ventricular ejection fraction is within the normal range. There is increased LV wall thickness. There is normal LV segmental wall motion. Transmitral Doppler flow pattern suggests impaired LV relaxation. LVEF is 55%. Right Ventricle Right ventricle is mildly dilated. The right ventricular systolic function is normal. Atria The left atrium size is normal. The right atrium size is normal. There is no Doppler evidence of interatrial shunt. Aortic Valve The aortic valve is mildly thickened. There is no aortic valvular stenosis. No aortic regurgitation is present. Mitral Valve TheThe mitral valve leaflets are mildly thickened. No evidence of mitral valve stenosis. Trace mitral regurgitation. Tricuspid Valve The tricuspid valve leaflets are thin and pliable. Mild tricuspid regurgitation. RVSP is 20-25 mmHg. Pulmonic Valve The pulmonary valve is grossly normal in structure. Trace pulmonic regurgitation. Great Vessels The aortic root is normal in size. The ascending aorta is not well-visualized. IVC is normal in size and collapses >50% with inspiration. Pericardium There is no pericardial effusion. Other Information Study Quality: Technically Difficult Conclusion Technically difficult study due to poor acoustic windows. Normal biventricular systolic function. Mild RV dilation. Mild TR. Electronically signed by : Anna Nunes MD 04/04/2024 15:24:57
--- NOTE | 2024-03-31 10:41 | NM_ITS ---
APPROVED REPORT Exam: Nuclear Stress Test Indication: chest pain..soa..dizziness Patient Location: Outpatient Stress Tech: Frieda SCHERER Tech:Sandy ElizondoDENNIS RT(R)(N) Ht: 5 ft 7 in Wt: 195 lbs HR: 53 bpm BP: 144/64 mmHg BSA: 2.00 m2 TID: 1.12 BMI: 30.5 History: chest pain..soa..dizziness5 Procedure: Patient received 0.4 mg of intravenous Lexiscan, resting heart rate 53 bpm, resting blood pressure 144/64 mmHg, with Lexiscan maximum heart rate achieved was 75 bpm which is 85 % of the maximum predicted heart rate and blood pressure was 144/64 mmHg. With Lexiscan, patient denied any complaint of chest pain. Cardiac Stress and Resting SPECT Images: Cardiac Stress and Resting SPECT images were obtained using technetium 99m Myoview 32.5 mCi stress and 10.35 mCi at rest. Resting and stress imaging in supine and prone positions demonstrate a medium sized, moderate, fixed perfusion defect in the basal to mid inferior and inferolateral LV oliveira. Gated imaging demonstrates low-normal global LV systolic function. There is mild hypokinesis of the inferior and lateral LV oliveira. LVEF is calculated at 51%. Conclusion: Medium sized, moderate, fixed perfusion defect in the basal to mid inferior and inferolateral LV oliveira. No evidence of reversible ischemia. Gated imaging demonstrates low-normal global LV systolic function. There is mild hypokinesis of the inferior and lateral LV oliveira. LVEF is calculated at 51%. Electronically signed by : Anna Nunes MD 04/04/2024 13:08:33
[2024-03-31] MEDS: SODIUM CHLORIDE 0.9% 10ML SYR (RAD ONLY) 10 ML IV ×2 (13:55)
[2024-03-31] MEDS: ISOTOPE MYOVIEW (PER STUDY) 1 DOSE IV (13:55)
[2024-03-31] MEDS: REGADENOSON 0.4MG/5ML SYRINGE 0.4 MG IV (13:55)
== END 2024-03-31 23:59 | disposition home or self-care (01) ==
LOC: RT 10:13
PROVIDERS: PCP Internal Medicine Adolescent Medicine; Visit Provider Nurse Practitioner Family
DX: I51.7 Cardiomegaly (principal); R07.89 Other chest pain; I25.10 Atherosclerotic heart disease of native coronary artery without angina pectoris; R94.31 Abnormal electrocardiogram [ECG] [EKG]; R06.00 Dyspnea, unspecified; R53.83 Other fatigue; E78.2 Mixed hyperlipidemia
CPT/HCPCS: 78452; 93017; 93018; 93306; A9502; J2785

== ENCOUNTER 2024-04-12 15:04 | Outpatient (POV) | payer MEDICARE, SELFPAY | END 2024-04-12 23:59 | disposition home or self-care (01) | LOC: SC 15:04 | PROVIDERS: Visit Provider Dermatology | DX: Z00.00 Encounter for general adult medical examination without abnormal findings (principal) ==

== ENCOUNTER 2025-04-06 14:40 | Outpatient (CLI) | payer MEDICARE, SELFPAY ==
[2025-04-06 15:54] LABS: Hematocrit 41.6 % (42.0-52.0); Hemoglobin 13.9 g/dL (14.1-18.0); Immature Granulocytes % 0.4 %; Mean Corpuscular HGB Conc 33.4 g/dL (31.8-35.4); Mean Corpuscular Hemoglobin 31.4 pg (27.0-31.2); Mean Corpuscular Volume 94.1 fl (80-94); Nucleated Red Blood Cells % 0 %; Platelet Count 196 K/mm3 (142-424); Red Blood Count 4.42 M/mm3 (4.60-6.20); Red Cell Distribution Width-SD 43.0 fL; White Blood Count 7.8 K/mm3 (4.8-10.8)
[2025-04-06 16:45] LABS: Alanine Aminotransferase 25 U/L (12-78); Albumin Level 3.5 g/dl (3.5-5.0); Alkaline Phosphatase 104 U/L (38-126); Anion Gap 12.1 mEq/L (5-15); Aspartate Amino Transferase 27 U/L (17-59); Bilirubin,Direct 0.2 mg/dl (0.0-0.4); Bilirubin,Indirect 0.7 mg/dL (0.0-0.9); Bilirubin,Total 0.9 mg/dl (0.2-1.3); Bilirubin,Unconjugated 0.7 mg/dL (0.0-1.1); Blood Urea Nitrogen 33 mg/dl (9-20); Calcium 8.6 mg/dl (8.4-10.2); Carbon Dioxide 25 mmol/L (22.0-30.0); Chloride 103 mmol/L (98-107); Cholesterol 95 mg/dl (140-200); Creatinine,Serum 1.40 mg/dl (0.66-1.25); Estimated Glomerular Filt Rate 48 ml/min (>60); GFR (African American) 58 ML/MIN (>60); Glucose 124 mg/dl (74-100); HDL Cholesterol 29 mg/dl (40-60); Magnesium 1.8 mg/dl (1.6-2.3); Potassium 4.1 mmoL/L (3.5-5.1); Sodium 136 mmol/L (136-145); Total Protein,Serum 6.2 g/dl (6.3-8.2); Triglycerides 92 mg/dl (30-150)
[2025-04-06 17:01] LABS: Free T4 (Free Thyroxine) 1.27 ng/dl (0.78-2.19)
[2025-04-06 17:15] LABS: Thyroid Stimulating Hormone 1.29 uIU/mL (0.465-4.68)
== END 2025-04-06 23:59 | disposition home or self-care (01) ==
LOC: LAB 14:41
PROVIDERS: PCP Internal Medicine; Visit Provider Nurse Practitioner
DX: I25.118 Atherosclerotic heart disease of native coronary artery with other forms of angina pectoris (principal); R42 Dizziness and giddiness; E78.2 Mixed hyperlipidemia; I10 Essential (primary) hypertension
CPT/HCPCS: 36415; 80048; 80061; 80076; 83735; 84439; 84443; 85025; 93225; 93227

== ENCOUNTER 2025-04-17 14:29 | Outpatient (CLI) | payer MEDICARE, SELFPAY ==
--- NOTE | 2025-04-17 14:30 | CA_ITS ---
APPROVED REPORT EXAM: Comprehensive 2D, Doppler, and color-flow Echocardiogram [employer] Elastic Operator: Tona Wright RVT Ht: 5 ft 7 in Wt: 182lbs BSA: 1.94 BP: 114/58 mmHg Indications: DYSPENA TDS-OVERLAYING LUNG,VERY LIMITED WINDOWS M-Mode Dimensions RVDd 4.95 cm (0.9-2.6) LA Diam 3.32 cm (1.9-4.0) LVDd 4.26 cm (3.5-5.7) LVDs 2.95 cm (3.5-5.7) IVSd 1.44 cm (0.6-1.1) PWd 0.94 cm (0.6-1.1) EF (Teich) 58.70% FS 30.80% EDV (Teich) 81.30 mL ESV (Teich) 33.60 mL LV Diastology E Decel Time 187 (160-240 msec) E/A Ratio 0.6 Aortic Valve AoV Peak Josue. 104.0 (50-130 cm/s) AO Peak GR. 4.40 mmHg AO Mean GR. 2.30 (<5 mmHg) AO VTI 17.7 (18-25 cm) Mitral Valve MV E Max Josue. 48.0 (40-130 cm/s) MV A Velocity 85.0 (40-130 cm/s) E/A Ratio 0.57 MV PHT 55.0 ms Pulmonary Valve PV Peak Velocity 39.0 (50-150 cm/s) Left Ventricle The left ventricle is normal size. Left ventricular systolic function is normal. The left ventricular ejection fraction is within the normal range. There is increased left ventricular wall thickness. There is normal LV segmental wall motion. The left ventricular diastolic function is indeterminate. LVEF is 55%. Right Ventricle The right ventricle is mildly to moderately dilated. The right ventricular systolic function is normal. Atria The left atrium is mildly dilated. The right atrium is mildly dilated. There is no color Doppler evidence of interatrial shunt. Aortic Valve The aortic valve is mildly thickened. There is no hemodynamically significant aortic valvular stenosis. No aortic regurgitation is present. Mitral Valve The mitral valve is normal in structure. No evidence of mitral valve stenosis. Trace mitral regurgitation is present. Tricuspid Valve The tricuspid valve leaflets are thin and pliable. Trace tricuspid regurgitation. There is insufficient TR jet to estimate RVSP. Pulmonic Valve The pulmonary valve is grossly normal in structure. Trace pulmonic valve regurgitation is present. Great Vessels The aortic root is normal in size. IVC is normal in size and collapses >50% with inspiration. Pericardium There is no pericardial effusion. Other Information Study Quality: Technically Difficult Conclusion Normal biventricular systolic function. Mild to moderate RV dilation. Mild biatrial dilation. No significant valvular stenosis or regurgitation. Electronically signed by : Anna Nunes MD 04/19/2025 12:51:44
== END 2025-04-17 23:59 | disposition home or self-care (01) ==
LOC: RT 14:30
PROVIDERS: PCP Internal Medicine; Visit Provider Nurse Practitioner
DX: I11.9 Hypertensive heart disease without heart failure (principal); I25.10 Atherosclerotic heart disease of native coronary artery without angina pectoris; E78.5 Hyperlipidemia, unspecified; R42 Dizziness and giddiness
CPT/HCPCS: 93306